=== PATIENT | male | born 1950 | race Caucasian/White ===

== ENCOUNTER 2020-04-17 10:28 | Inpatient (IN) ==
[2020-04-17] MEDS ORDERED: cefOXitin 2,000 MG in Water for inj. (sterile) 20 ML IVP ONE (10:48)
[2020-04-17] MEDS ORDERED: Ringers Solution, Lactated 1,000 ML IVC SCH ×2 (11:00→12:00)
[2020-04-17] MEDS ORDERED: Ondansetron 4 MG/2 ML VIAL IVP PRN ×2 (11:47→15:56)
[2020-04-17] MEDS ORDERED: *HR* HYDROmorphone PF 0.5 MG/0.5 ML SYRINGE IVP PRN (11:47)
[2020-04-17] MEDS ORDERED: *HR* HYDROcodone/Acet 5/325 mg TABLET PO PRN (11:47)
[2020-04-17] MEDS ORDERED: *HR* FentaNYL (PF) 100 MCG/2 ML VIAL ONE (12:44)
[2020-04-17] MEDS ORDERED: *HR* Propofol 200 MG/20 ML VIAL IVP ONE (12:44)
[2020-04-17] MEDS ORDERED: *HR* Rocuronium Bromide 50 MG/5 ML VIAL ONE (12:45)
[2020-04-17] MEDS ORDERED: Lidocaine -MPF 2% 2 ML VIAL ONE (12:45)
[2020-04-17] MEDS ORDERED: Ondansetron 4 MG/2 ML VIAL ONE (12:45)
[2020-04-17] MEDS ORDERED: Lidocaine HCL 4 ML Topical Solution (Laryng-O-Jet Kit Sterile Pak) TP ONE (12:49)
[2020-04-17] MEDS ORDERED: Acetaminophen IV 1,000 MG/100 ML BAG IVPB ONE (13:05)
[2020-04-17] MEDS ORDERED: *HR* Succinylcholine 200 MG/10 ML VIAL IVP ONE (13:11)
[2020-04-17] MEDS ORDERED: *HR* HYDROMORPHONE 2 MG/ML VIAL ONE (13:53)
[2020-04-17] MEDS ORDERED: Naloxone 0.4 MG/ML INJ IVP PRN (15:56)
[2020-04-17] MEDS: 0.9 % Sodium Chloride 1,000 ML IVC SCH (16:12)
[2020-04-17] MEDS: *HR* Heparin 5,000 UNIT/ML VIAL SQ SCH (18:37)
[2020-04-17] MEDS: Ketorolac 15 MG/ML VIAL IVP SCH (18:39)
[2020-04-17] MEDS: Acetaminophen IV 1,000 MG/100 ML BAG IVPB SCH ×2 (21:47→23:53)
[2020-04-18] MEDS: Ketorolac 15 MG/ML VIAL IVP SCH ×3 (00:01→11:57)
[2020-04-18 03:01] LABS: Hematocrit 39.5 % (37.5-50.1); Hemoglobin 13.4 g/dL (12.9-16.9); Immature Granulocytes % 0.5 % (0-4); Lymphocytes # 0.6 K/mcL (0.6-4.6); Lymphocytes % 5.2 %; Mean Corpuscular HGB Conc 33.9 g/dL (31.6-35.5); Mean Corpuscular Hemoglobin 32.4 pg (28.0-33.3); Mean Corpuscular Volume 95.6 fL (83.0-100.0); Mean Platelet Volume 8.8 fL (9.4-12.4); Monocytes # 0.2 K/mcL (0.0-1.3); Monocytes % 2.1 %; Platelet Count 272 K/mcL (140-400); Red Blood Count 4.13 M/mcL (4.19-5.50); Segmented Neutrophils % 92.2 %; White Blood Count 10.8 K/mcL (4.3-11.1)
[2020-04-18 03:21] LABS: BUN/Creatinine Ratio 16 (6-26); Blood Urea Nitrogen 19 mg/dL (8-23); Calcium 8.7 mg/dL (8.6-10.3); Carbon Dioxide 22 mEq/L (23-29); Chloride 104 mEq/L (98-107); Glucose 173 mg/dL (70-105); Osmolality,Calculated 286 (280-300); Potassium 4.1 mEq/L (3.5-5.1); Sodium 135 mEq/L (136-145); eGFR For African Americans > 60 (> 60); eGFR For Non-African Americans > 60 (> 60)
[2020-04-18] MEDS: Acetaminophen IV 1,000 MG/100 ML BAG IVPB SCH ×2 (05:41→11:55)
[2020-04-18] MEDS: 0.9 % Sodium Chloride 1,000 ML IVC SCH (05:42)
[2020-04-18] MEDS: *HR* Heparin 5,000 UNIT/ML VIAL SQ SCH (05:43)
[2020-04-18 11:53] VITALS: BP 133/68
== END 2020-04-18 18:34 | disposition home or self-care (01) | DRG 331 ==
LOC: SAMDAY 10:28 → 3ANU 15:56
PROVIDERS: ADMIT Surgery; ATTEND Surgery